=== PATIENT | female | born 1985 ===

== ENCOUNTER 2024-07-13 12:51 | Emergency (ER) | payer MEDICAID ==
[~2024-07-13] VITALS: Wt 57.0 kg
[2024-07-13 16:12] VITALS: TEMP 97.7
[2024-07-13] MEDS ORDERED: predniSONE 20 MG TAB PO ONE (17:30)
[2024-07-13] MEDS ORDERED: diphenhydrAMINE 50 MG/ML 1 ML VIAL IM ONE (17:30)
[2024-07-13] MEDS ORDERED: ELIMITE TOP (17:31)
[2024-07-13] MEDS ORDERED: PREDNISONE20 MG PO (17:34)
[2024-07-13 18:00] VITALS: BP 130/73; PULSE 72
== END 2024-07-13 18:00 | disposition home or self-care (01) ==
LOC: COL.ER 12:51
DX: R21 Rash and other nonspecific skin eruption (principal)
CPT/HCPCS: J1200; J7512